=== PATIENT | male | born 1945 | race Caucasian/White ===

== ENCOUNTER 2016-11-06 20:40 | Emergency (ER) | payer OTHER ==
[2016-11-06 21:20] LABS: BASOPHIL 0.3 % (0-2); EOSINOPHIL 3.6 % (0-7); HGB 14.7 g/dl (13.2-18.0); LYMPHOCYTE 26.8 % (15-48); MCH 31.7 pg (25.0-31.0); MCHC 34.2 g/dL (32.0-36.0); MCV 92.9 fL (78.0-100.0); MONOCYTE 12.9 % (0-12); MPV 9.6 fL (6.0-9.5); NEUTROPHIL 56.4 % (41-80); PLT 158 K/uL (150-400); RBC 4.63 M/uL (4.70-6.00); RDW 12.8 % (11.5-14.0); WBC 6.1 K/uL (4.0-10.5)
[2016-11-06 21:38] LABS: ALBUMIN 4.3 g/dL (3.4-4.8); BILIRUBIN - TOTAL 0.5 mg/dL (0.1-1.0); CREATININE 1.2 mg/dL (0.7-1.2); GLOBULIN (CALCULATION) 2.5 g/dL (2.2-4.2); POTASSIUM 4.1 mmol/L (3.5-5.1); TOTAL PROTEIN 6.8 g/dL (6.4-8.3)
[2016-11-06 22:46] LABS: BILIRUBIN NEGATIVE (NEGATIVE); BLOOD NEGATIVE Ery/uL (NEGATIVE); CLARITY SLIGHTLY HAZY (CLEAR); COLOR YELLOW (YELLOW); GLUCOSE (U) NORMAL (NORMAL); KETONE (U) NEGATIVE (NEGATIVE); LEUKOCYTES NEGATIVE Leu/uL (NEGATIVE); NITRITE NEGATIVE (NEGATIVE); PROTEIN NEGATIVE (NEGATIVE); UROBILINOGEN 0.2 mg/dL (0.2-1.0); pH 6.5 (5.0-9.0)
== END 2016-11-06 23:54 | disposition home or self-care (01) ==
LOC: FER 20:40
PROVIDERS: Internal Medicine
DX: I10 Essential (primary) hypertension (principal); R41.0 Disorientation, unspecified; G20 Parkinson's disease; Z86.69 Personal history of other diseases of the nervous system and sense organs; Z79.899 Other long term (current) drug therapy
CPT/HCPCS: 36415; 71020; 80053; 81003; 85025; J2405

== ENCOUNTER 2016-11-08 02:46 | Emergency (ER) | payer OTHER ==
[2016-11-08 03:25] LABS: BASOPHIL 0.6 % (0-2); EOSINOPHIL 5.2 % (0-7); HCT 43.1 % (42.0-52.0); HGB 14.6 g/dl (13.2-18.0); LYMPHOCYTE 32.1 % (15-48); MCH 31.8 pg (25.0-31.0); MCHC 33.9 g/dL (32.0-36.0); MCV 93.9 fL (78.0-100.0); MONOCYTE 13.1 % (0-12); MPV 9.9 fL (6.0-9.5); PLT 131 K/uL (150-400); RBC 4.59 M/uL (4.70-6.00); RDW 12.9 % (11.5-14.0); WBC 5.2 K/uL (4.0-10.5)
[2016-11-08 03:40] LABS: INR 1.01 (0.9-1.2); PROTHROMBIN TIME 12.9 SECONDS (11.7-14.0)
[2016-11-08 03:49] LABS: ALBUMIN 4.1 g/dL (3.4-4.8); BILIRUBIN - TOTAL 0.6 mg/dL (0.1-1.0); CREATININE 1.1 mg/dL (0.7-1.2); GLOBULIN (CALCULATION) 2.7 g/dL (2.2-4.2); POTASSIUM 4.2 mmol/L (3.5-5.1); TOTAL PROTEIN 6.8 g/dL (6.4-8.3)
[2016-11-08 03:50] LABS: CKMB 2.09 ng/mL (0.97-4.94); MYOGLOBIN 37 ng/mL (26-65); TROPONIN T < 0.010 ng/mL
== END 2016-11-08 03:56 | disposition other institution (70) ==
LOC: FER 02:46
PROVIDERS: Emergency Medicine
DX: I60.9 Nontraumatic subarachnoid hemorrhage, unspecified (principal); R20.2 Paresthesia of skin; R40.4 Transient alteration of awareness; I10 Essential (primary) hypertension; G20 Parkinson's disease
CPT/HCPCS: 36415; 70450; 80053; 80061; 82550; 82553; 83874; 84484; 85025; 85610; 85730; 93005

== ENCOUNTER 2017-01-07 17:18 | Emergency (ER) | payer OTHER ==
[2017-01-07 17:45] LABS: BASOPHIL 0.6 % (0-2); EOSINOPHIL 3.6 % (0-7); HGB 15.5 g/dl (13.2-18.0); LYMPHOCYTE 26.8 % (15-48); MCH 31.8 pg (25.0-31.0); MCHC 35.2 g/dL (32.0-36.0); MCV 90.3 fL (78.0-100.0); MONOCYTE 10.3 % (0-12); MPV 9.9 fL (6.0-9.5); NEUTROPHIL 58.7 % (41-80); PLT 157 K/uL (150-400); RBC 4.87 M/uL (4.70-6.00); RDW 13.1 % (11.5-14.0); WBC 6.3 K/uL (4.0-10.5)
[2017-01-07 17:49] LABS: INR 1.13 (0.9-1.2); PROTHROMBIN TIME 14.1 SECONDS (11.7-14.0); PTT 27.6 SECONDS (23.2-31.4)
[2017-01-07 17:58] LABS: CKMB 1.85 ng/mL (0.97-4.94); MYOGLOBIN 41 ng/mL (26-65); TROPONIN T < 0.010 ng/mL
[2017-01-07 18:00] LABS: ALBUMIN 4.3 g/dL (3.4-4.8); BILIRUBIN - TOTAL 1.1 mg/dL (0.1-1.0); CREATININE 1.2 mg/dL (0.7-1.2); GLOBULIN (CALCULATION) 2.7 g/dL (2.2-4.2); POTASSIUM 4.1 mmol/L (3.5-5.1)
== END 2017-01-07 18:44 | disposition home or self-care (01) ==
LOC: FER 17:18
PROVIDERS: Internal Medicine
DX: R20.2 Paresthesia of skin (principal); G20 Parkinson's disease; Z86.73 Personal history of transient ischemic attack (TIA), and cerebral infarction without residual deficits; Z79.899 Other long term (current) drug therapy
CPT/HCPCS: 36415; 70450; 71010; 80053; 80061; 82550; 82553; 83874; 84484; 85025; 85610; 85730; 93005